=== PATIENT | female | born 1950 | race Caucasian/White ===

== ENCOUNTER 2021-01-28 12:32 | Emergency (ER) | payer OTHER ==
[2021-01-28] MEDS ORDERED: CEFTRIAXONE 1000 MG/VIAL ONE (13:34)
[2021-01-28] MEDS ORDERED: METHYLPREDNISOLONE 125 MG INJ ONE (13:34)
[2021-01-28] MEDS ORDERED: NA CHLORIDE 0.9% 100 ML ONE (13:34)
[2021-01-28] MEDS ORDERED: ALBUTEROL 2.5 MG/3 ML NEB SOL ONE (13:34)
[2021-01-28] MEDS ORDERED: IPRATROPIUM BROM 0.5MG/2.5ML ONE (13:34)
--- NOTE | 2021-01-28 13:43 | RAD REPORT ---
EXAM DESCRIPTION: RAD - Chest Single View - 01/28/2021 1:12 pm CLINICAL HISTORY: COPD, dyspnea COMPARISON: None TECHNIQUE: AP portable chest image was obtained 01/28/2021 1:12 pm . FINDINGS: Exam is quite limited. Lung volumes are low with under penetrated technique and significan t overlying soft tissues. No dense mass or consolidation identifiable. Lateral left base is the most limited in visualization. Significant failure or volume overload are unlikely. Trachea is midline. Heart size is prominent but not outside of normal range for the exam limitations. No acute bony abnormality seen. No acute aortic findings suspected. IMPRESSION: Significantly limited portable chest as detailed. No acute cardiopulmonary process confi rmed.
[2021-01-28 13:47] LABS: Protime INR 0.88
[2021-01-28 13:53] LABS: Absolute Lymphocytes (CBC) 4.1 K/uL (0.7-4.9); Basophils % 0.3 % (0-1.3); Hematocrit 38.4 % (36.0-45.0); Lymphocytes % 28.5 % (15.3-44.8); MPV 8.8 fL (7.6-11.3); RBC Red Blood Cell Count 4.84 M/uL (3.86-4.86)
[2021-01-28 14:03] LABS: ALT/SGPT 19 U/L (12-78); AST/SGOT 13 U/L (15-37); Albumin 3.6 g/dL (3.4-5.0); Alkaline Phosphatase 66 U/L (45-117); BUN Blood Urea Nitrogen 23 mg/dL (7-18); Bicarbonate 26 mmol/L (21-32); Bilirubin Direct 0.1 mg/dL (0-0.2); Bilirubin Total 0.5 mg/dL (0.2-1.0); Glucose Level 83 mg/dL (74-106); Magnesium 2.4 mg/dL (1.8-2.4); NT PRO-BNP 196 pg/mL (<125); Potassium 3.6 mmol/L (3.5-5.1); Protein, Total 6.8 g/dL (6.4-8.2); Sodium Level 141 mmol/L (136-145); Troponin (Emerg Dept Use Only) < 0.02 ng/mL (0.0-0.045)
--- NOTE | 2021-01-28 15:03 | ER ---
Nurse's Notes [facility] Name: Nava Orr Age: 70 yrs Sex: Female : 1950 Arrival Date: 01/28/2021 Time: 12:33 Bed 7 Private MD: Diagnosis: COPD/ Chronic obstructive pulmonary disease with (acute) exacerbation Presentation: 01/28 12:34 Chief complaint: EMS states: SHORTNESS OF BREATH. Coronavirus screen: cough unrelated bp to allergies, shortness of breath, Client presents with at least one sign or symptom that may indicate coronavirus-19. Standard/surgical mask placed on the client. Provider contacted for isolation considerations. Ebola Screen: No symptoms or risks identified at this time. Initial Sepsis Screen: Does the patient meet any 2 criteria? RR > 20 per min. No. Patient's initial sepsis screen is negative. Does the patient have a suspected source of infection? No. Patient's initial sepsis screen is negative. Risk Assessment: Do you want to hurt yourself or someone else? Patient reports no desire to harm self or others. Onset of symptoms is unknown. Care prior to arrival: IV initiated. 22 GA, in the right wrist, Glucose check: 146 Med neb given. Oxygen administered. via a nebulizer mask. 12:34 Method Of Arrival: EMS: [facility] bp 12:34 Acuity: DAFNE 2 bp Triage Assessment: 12:36 General: Appears distressed, uncomfortable, obese, Behavior is cooperative, appropriate bp for age, anxious. Pain: Denies pain. EENT: No deficits noted. Neuro: Level of Consciousness is awake, alert, obeys commands, Oriented to Appropriate for age. Cardiovascular: Rhythm is sinus rhythm. Respiratory: Reports shortness of breath cough that is Onset: The symptoms/episode began/occurred yesterday, the patient has severe shortness of breath. GI: No signs and/or symptoms were reported involving the gastrointestinal system. : No signs and/or symptoms were reported regarding the genitourinary system. Derm: No deficits noted. Musculoskeletal: No deficits noted. Historical: - Allergies: 12:36 No Known Allergies; bp - Home Meds: 12:36 Coreg Oral [Active]; Clonidine Oral [Active]; Lasix Oral [Active]; Prednisone Oral bp [Active]; - PMHx: 12:36 Chronic obstructive lung disease; Hypertensive disorder; Diabetes mellitus; Asthma; bp - Immunization history:: Adult Immunizations up to date, Client reports receiving the 1st dose of the Covid vaccine. - Social history:: Smoking status: unknown. Screenin:48 Abuse screen: Denies threats or abuse. Denies injuries from another. Nutritional bp screening: No deficits noted. Tuberculosis screening: No symptoms or risk factors identified. Fall Risk None identified. Assessment: 12:00 Neuro: Level of Consciousness is awake, alert, obeys commands, Oriented to Appropriate bp for age. Cardiovascular: Rhythm is sinus rhythm. Respiratory: Airway is patent Respiratory effort is labored, with retractions, Respiratory pattern is regular, symmetrical, apnea the patient has severe shortness of breath. GI: No signs and/or symptoms were reported involving the gastrointestinal system. : No signs and/or symptoms were reported regarding the genitourinary system. EENT: No signs and/or symptoms were reported regarding the EENT system. Derm: No deficits noted. Musculoskeletal: No deficits noted. 13:00 Reassessment: No changes from previously documented assessment. Patient and/or family bp updated on plan of care and expected duration. Pain level reassessed. 13:55 Reassessment: PT AFFIRMS INCREASED ANXIETY 2/2 HOME ISSUES. Respiratory: Breath sounds bp with crackles Breath sounds with wheezes. 14:57 Reassessment: Patient and/or family updated on plan of care and expected duration. Pain bp level reassessed. PER , PT NOW ON ROOM AIR. Patient states feeling better. Vital Signs: 12:34 BP 186 / 90; Pulse 85; Resp 32; Temp 98.7; Pulse Ox 95% ; bp 12:50 BP 195 / 115; Pulse 93; Resp 27; Pulse Ox 100% on 7% Nebulizer Mask; mh5 13:53 BP 194 / 103; Pulse 70; Resp 19; Pulse Ox 100% ; bp 14:57 BP 181 / 80; Pulse 74; Resp 22; Pulse Ox 97% ; bp ED Course: 12:33 Patient arrived in ED. bp 12:34 Keven Hou, PARVIN is Primary Nurse. bp 12:34 Mansi Kenny MD is Attending Physician. sp3 12:36 Triage completed. bp 12:42 Arm band placed on. bp 12:48 Patient has correct armband on for positive identification. Bed in low position. Call bp light in reach. Side rails up X2. 12:49 Maintain EMS IV. Dressing intact. Good blood return noted. Site clean \T\ dry. Gauge \T\ bp site: 22 GAUGE R WRIST. 12:50 Placed in gown. Side rails up X 1. Warm blanket given. blocker metal base on. Pulse ox on. mh5 NIBP on. 13:12 XRAY Chest (1 view) In Process Unspecified. EDMS 13:51 CBC with Diff Sent. bp 13:51 Basic Metabolic Panel Sent. bp 15:31 No provider procedures requiring assistance completed. IV discontinued, intact, bp bleeding controlled, No redness/swelling at site. Pressure dressing applied. Administered Medications: 12:50 Drug: SOLU-Medrol (methylPrednisoLONE) 125 mg Route: IVP; Site: right wrist; bp 13:56 Follow up: Response: No adverse reaction bp 12:50 Drug: Albuterol - atroVENT (ipratropium) (3:1) (2.5 mg - 0.5 mg) 9 ml Route: Nebulizer; bp 13:57 Follow up: Response: Marked relief of symptoms bp 12:50 Drug: Rocephin - (cefTRIAXone) 1 grams Route: IVPB; Infused Over: 30 mins; Site: right bp wrist; 15:31 Follow up: IV Status: Completed infusion; IV Intake: 50ml bp Intake: 15:31 IV: 50ml; Total: 50ml. bp Outcome: 15:02 Discharge ordered by . sp3 15:31 Discharged to home via wheelchair. bp 15:31 Condition: stable 15:31 Discharge instructions given to patient, Instructed on discharge instructions, follow up and referral plans. medication usage, Demonstrated understanding of instructions, follow-up care, medications, Prescriptions given X 3. 15:32 Patient left the ED. bp Signatures: Dispatcher [employer] Ramila Chance 5 Keven Hou RN RN bp Mansi Kenny MD MD sp3 Corrections: (The following items were deleted from the chart) 12:40 12:36 Allergies: PENICILLINS; bp bp
--- NOTE | 2021-01-28 15:03 | EDPHYS ---
Physician Documentation [facility] Name: Nava Orr Age: 70 yrs Sex: Female : 1950 Arrival Date: 01/28/2021 Time: 12:33 Bed 7 Private MD: ED Physician Mansi Kenny HPI: 01/28 12:40 This 70 yrs old Female presents to ER via EMS with complaints of Shortness Of sp3 Breath. 12:40 70-year-old female with a history of COPD, hypertension, diabetes presents via EMS for sp3 acute exacerbation of COPD and asthma. Patient has been using her regular as well as rescue inhalers, been taking oral prednisone, and an oral antibiotic that she had leftover with no resolution. Patient states that she is taking care of her who is a stroke patient and "cannot be admitted". Patient is also a retired nurse. Patient's desire is to "get treated and be discharged if possible". Patient denies fever, headache, neck pain, chest pain, abdominal pain, nausea, vomiting, diarrhea, neuro symptoms, rash, any other symptoms on ROS at this time. Remainder of ROS is negative. Patient has a mild productive cough but states that the wheezing and air hunger is the largest complaint. Per EMS patient is improved on the nebulizer but they gave.. Historical: - Allergies: 12:36 No Known Allergies; bp - Home Meds: 12:36 Coreg Oral [Active]; Clonidine Oral [Active]; Lasix Oral [Active]; Prednisone Oral bp [Active]; - PMHx: 12:36 Chronic obstructive lung disease; Hypertensive disorder; Diabetes mellitus; Asthma; bp - Immunization history:: Adult Immunizations up to date, Client reports receiving the 1st dose of the Covid vaccine. - Social history:: Smoking status: unknown. ROS: 12:42 Constitutional: Negative for fever, chills, and weight loss, Eyes: Negative for injury, sp3 pain, redness, and discharge, ENT: Negative for injury, pain, and discharge, Neck: Negative for injury, pain, and swelling, Cardiovascular: Negative for chest pain, palpitations, and edema, Abdomen/GI: Negative for abdominal pain, nausea, vomiting, diarrhea, and constipation, Back: Negative for injury and pain, MS/Extremity: Negative for injury and deformity, Skin: Negative for injury, rash, and discoloration, Neuro: Negative for headache, weakness, numbness, tingling, and seizure, Psych: Negative for depression, anxiety, suicide ideation, homicidal ideation, and hallucinations, Allergy/Immunology: Negative for hives, rash, and allergies, Endocrine: Negative for neck swelling, polydipsia, polyuria, polyphagia, and marked weight changes. 12:42 All other systems are negative. Exam: 12:42 Constitutional: This is a well developed, well nourished patient who is awake, alert, sp3 and in no acute distress. Head/Face: Normocephalic, atraumatic. Eyes: Pupils equal round and reactive to light, extra-ocular motions intact. Lids and lashes normal. Conjunctiva and sclera are non-icteric and not injected. Cornea within normal limits. Periorbital areas with no swelling, redness, or edema. ENT: Nares patent. No nasal discharge, no septal abnormalities noted. External auditory canals are clear. Oropharynx with no redness, swelling, or masses, exudates, or evidence of obstruction, uvula midline. Mucous membranes moist. Neck: Trachea midline, no thyromegaly or masses palpated, and no cervical lymphadenopathy. Supple, full range of motion without nuchal rigidity, or vertebral point tenderness. No Meningismus. Chest/axilla: Normal chest wall appearance and motion. Nontender with no deformity. No lesions are appreciated. Abdomen/GI: Soft, non-tender, with normal bowel sounds. No distension or tympany. No guarding or rebound. No evidence of tenderness throughout. Skin: Warm, dry with normal turgor. Normal color with no rashes, no lesions, and no evidence of cellulitis. Neuro: Awake and alert, GCS 15, oriented to person, place, time, and situation. Cranial nerves II-XII grossly intact. Motor strength 5/5 in all extremities. Sensory grossly intact. Cerebellar exam normal. Normal gait. Psych: Awake, alert, with orientation to person, place and time. Behavior, mood, and affect are within normal limits. 12:42 Respiratory: Patient has an increased effort of breathing and is breathing at approximately 22-24 times per minute currently on a nebulizer. Wheezes are evident in all lung dunham with no rales at this time. Cardiac exam is normal other than tachycardia. There is no peripheral edema noted.. Vital Signs: 12:34 BP 186 / 90; Pulse 85; Resp 32; Temp 98.7; Pulse Ox 95% ; bp 12:50 BP 195 / 115; Pulse 93; Resp 27; Pulse Ox 100% on 7% Nebulizer Mask; mh5 13:53 BP 194 / 103; Pulse 70; Resp 19; Pulse Ox 100% ; bp 14:57 BP 181 / 80; Pulse 74; Resp 22; Pulse Ox 97% ; bp MDM: 12:34 Patient medically screened. sp3 12:43 Data reviewed: vital signs, nurses notes, EMS record. ED course: 70-year-old female sp3 with acute exacerbation of COPD. Will administer Solu-Medrol IV, continuous nebulizer treatment, and antibiotics IV. Chest x-ray and laboratory values are pending. I have informed patient that she will likely need admission to the hospital but she still is adamant about being discharged. Will reevaluate after her treatment regimen is complete and determine ultimate disposition at that time. At this time I am not highly suspicious for acute coronary syndrome, pulmonary embolism, pneumonia, CHF, sepsis, shock, thoracic aneurysm, AAA, or any other critical findings at this time.. 15:01 ED course: Patient is much improved but has mild scattered wheezes. I have urged sp3 patient to stay for further treatment but she insists on leaving to take care of her . We will oblige and place her on oral prednisone and a Z-Hammad for home. Patient distended she may return at any time for further treatment.. 01/28 12:37 Order name: Basic Metabolic Panel sp3 01/28 12:37 Order name: CBC with Diff sp3 01/28 12:37 Order name: LFT's; Complete Time: 14:47 sp3 01/28 12:37 Order name: Magnesium; Complete Time: 14:47 sp3 01/28 12:37 Order name: NT PRO-BNP; Complete Time: 14:47 sp3 01/28 12:37 Order name: PT-INR; Complete Time: 14:47 sp3 01/28 12:37 Order name: Troponin (emerg Dept Use Only); Complete Time: 14:47 sp3 01/28 12:37 Order name: XRAY Chest (1 view); Complete Time: 13:45 sp3 01/28 12:37 Order name: Basic Metabolic Panel; Complete Time: 14:47 EDMS 01/28 12:37 Order name: CBC with Automated Diff; Complete Time: 14:47 EDMS 01/28 12:37 Order name: Cardiac monitoring; Complete Time: 12:50 sp3 01/28 12:37 Order name: EKG - Nurse/Tech; Complete Time: 12:50 sp3 01/28 12:37 Order name: IV Saline Lock; Complete Time: 13:51 sp3 01/28 12:37 Order name: Labs collected and sent; Complete Time: 13:51 sp3 01/28 12:37 Order name: O2 Per Protocol; Complete Time: 12:50 sp3 01/28 12:37 Order name: O2 Sat Monitoring; Complete Time: 12:50 sp3 Administered Medications: 12:50 Drug: SOLU-Medrol (methylPrednisoLONE) 125 mg Route: IVP; Site: right wrist; bp 13:56 Follow up: Response: No adverse reaction bp 12:50 Drug: Albuterol - atroVENT (ipratropium) (3:1) (2.5 mg - 0.5 mg) 9 ml Route: Nebulizer; bp 13:57 Follow up: Response: Marked relief of symptoms bp 12:50 Drug: Rocephin - (cefTRIAXone) 1 grams Route: IVPB; Infused Over: 30 mins; Site: right bp wrist; 15:31 Follow up: IV Status: Completed infusion; IV Intake: 50ml bp Disposition Summary: 01/28/21 15:02 Discharge Ordered Location: Home sp3 Condition: Stable sp3 Diagnosis - COPD/ Chronic obstructive pulmonary disease with (acute) exacerbation sp3 Followup: sp3 - With: Private Physician - When: - Reason: Recheck today's complaints Discharge Instructions: - Discharge Summary Sheet sp3 - Chronic Obstructive Pulmonary Disease sp3 Forms: - Medication Reconciliation Form sp3 - Thank You Letter sp3 - Antibiotic Education sp3 - Prescription Opioid Use sp3 Prescriptions: - Zithromax Z-Hammad 250 mg Oral Tablet - take 1 tablet by ORAL route as directed for 5 days Day 1 - take two (2) tablets sp3 one time. Day 2, 3, 4 , 5 take one (1) tablet once daily.; 6 tablet; Refills: 0, Product Selection Permitted - Prednisone 20 mg Oral Tablet - take 2 tablets by ORAL route once daily for 5 days; 10 tablet; Refills: 0, sp3 Product Selection Permitted - EpiPen - inject 1 application by SUBCUTANEOUS route one time 1 dose as needed severe sp3 allergic reaction or severe asthma. Activate EMS if used.; 2 Applicator; Refills: 0, Product Selection Permitted Signatures: Dispatcher [employer] Keven Ball, RN RN Mansi Almeida MD MD sp3 Corrections: (The following items were deleted from the chart) 12:40 12:36 Allergies: PENICILLINS; bp bp
[2021-01-28 15:38] VITALS: TEMP 98.7
[2021-01-28 15:42] VITALS: BP 181/80; O2SAT 97
== END 2021-01-28 15:32 | disposition home or self-care (01) ==
LOC: ER 12:32
DX: J44.1 Chronic obstructive pulmonary disease with (acute) exacerbation (principal); I10 Essential (primary) hypertension; E11.9 Type 2 diabetes mellitus without complications
CPT/HCPCS: 85025; 80048; 36415; 83735; 85610; 80076; 84484; 83880; 71045; 96375; 99285; 96366; J2930